=== PATIENT | male | born 1965 | race Asian ===

== ENCOUNTER 2023-07-21 06:37 | Day surgery (SDC) | payer OTHER ==
[~2023-07-21] VITALS: Ht 162.6 cm; Wt 74.5 kg
[2023-07-21] MEDS ORDERED: ALBUTEROL SULFATE 2.5 MG/0.5 ML NEB SOLUTION NEB ONE (06:38)
[2023-07-21] MEDS ORDERED: LIDOCAINE 2% 11 ML JELLY TP ONE (06:38)
[2023-07-21] MEDS ORDERED: LIDOCAINE 4% 50 ML SOLUTION TP ONE (06:38)
[2023-07-21] MEDS ORDERED: BENZOCAINE 20% 50 MCG/SPRAY 57 GM TP ONE (06:38)
[2023-07-21] MEDS ORDERED: SODIUM CHLORIDE 0.9% 1,000 ML IV ONE (07:00)
[2023-07-21] MEDS ORDERED: SODIUM CHLORIDE 0.9% 0 ML ONE (07:33)
[2023-07-21] MEDS ORDERED: FentaNYL CITRATE PF 100 MCG/2 ML VIAL ONE (07:52)
[2023-07-21] MEDS ORDERED: MIDAZOLAM HCL 2 MG/2 ML VIAL ONE (07:52)
[2023-07-21] MEDS ORDERED: SODIUM CHLORIDE 0.9% 1,000 ML ONE (08:13)
[2023-07-21 09:05] VITALS: PULSE 65; RESP 18; O2SAT 96
[2023-07-21] MEDS ORDERED: MethylPREDNISolone SOD SUCC 125 MG/2 ML VIAL IVP ONE (09:15)
== END 2023-07-21 11:20 | disposition home or self-care (01) ==
LOC: SURGERY 06:37
PROVIDERS: ATTEND Internal Medicine Critical Care Medicine
DX: R05.3 Chronic cough (principal); J98.4 Other disorders of lung; R91.1 Solitary pulmonary nodule; I27.20 Pulmonary hypertension, unspecified
CPT/HCPCS: 87206; 87101; 87220; 87070; 31623; 31624; 71045; 87015; J3010; J2250; J2930; Q9967; J7030; 88112; J7613; Z7610